=== PATIENT | male | born 1950 | race Caucasian/White ===

== ENCOUNTER 2016-12-20 05:32 | Day surgery (SDC) | payer OTHER ==
[~2016-12-20] VITALS: Ht 180.3 cm; Wt 100.0 kg
[2016-12-20] MEDS ORDERED: NS 1000P @30 MLS/HR (KVO) IV SCH (06:00)
[2016-12-20 06:08] VITALS: BP 129/85; PULSE 67; RESP 16; TEMP 98; O2SAT 99
[2016-12-20] MEDS ORDERED: ISOS30TA3 PO (06:20)
[2016-12-20] MEDS ORDERED: LEVO25TA4 PO (06:20)
[2016-12-20] MEDS ORDERED: ASPI81TA5 PO (06:20)
[2016-12-20 06:22] LABS: AUTOMATED NEUTROPHIL # 6.2 TH/MM3 (1.8-7.7); BASOPHIL % 0.4 % (0.0-2.0); EOSINOPHIL # 0.2 TH/MM3 (0-0.4); EOSINOPHIL % 2.4 % (0.0-4.0); HEMATOCRIT 40.2 % (39.0-51.0); HEMO FLAGS DIFF FINAL; LYMPHOCYTE # 1.7 TH/MM3 (1.0-4.8); MEAN CELL VOLUME 87.4 FL (80.0-100.0); MEAN CORPUSCULAR HEMOGLOBIN 29.4 PG (27.0-34.0); MEAN CORPUSCULAR HGB CONC 33.6 % (32.0-36.0); MONO % 12.9 % (0.0-8.0); NEUT % 66.3 % (16.0-70.0); PLATELET COUNT 204 TH/MM3 (150-450); RED CELL DISTRIBUTION WIDTH 13.6 % (11.6-17.2); WHITE BLOOD COUNT 9.3 TH/MM3 (4.0-11.0)
[2016-12-20 06:34] LABS: PROTHROMBIN TIME - PATIENT 10.6 SEC (9.8-11.6)
[2016-12-20 06:38] LABS: BICARBONATE 30.1 MEQ/L (21.0-32.0); POTASSIUM 4.1 MEQ/L (3.5-5.1)
[2016-12-20] MEDS ORDERED: HEPARIN-NS/PF INJ 500 ML ONE (07:05)
[2016-12-20] MEDS ORDERED: MIDAZOLAM HCL 2 MG/2 ML VIAL ONE (07:05)
[2016-12-20] MEDS ORDERED: NITROGLYCERIN INJ 5 ML ONE (07:05)
--- NOTE | 2016-12-20 08:11 | CATHPROC ---
T[employer] HIS Report Study Information Study Number Admission Scheduled Start Study Start [id number] Dec 20 2016 5:32AM 12/20/2016 Dec 20 2016 7:11AM [place] [facility] Cardiac Catheterization Admit Source Facility Department Other [facility] - Tooth Cutter Physician and Clinical Staff Initial Andrew Carlisle Console Operatorpramod Borden RN, Sari Min RN Recorder Reinier Brandon RCIS(BS) Scrub Nolan Villarreal RCIS(BS) Procedures Performed Procedure Location (Site) Vessel Name Angiogram LV LV Ventricle Coronary Angiograms LCA Left Coronary Coronary Angiograms RCA Right Coronary L Heart Cath Equipment Time Bridge Carpenter Description Size Mfg Part Number Used/Scraped TRANSDUCER, TRUWAVE [id number] 07:18 TRAN REDDING * Used W/STOCKCOCK *[id number] *[id number] *[id number] PIGTAIL ANG. 145 INFINITI [id number] CATHETER *[id number] 07:18 MEDLINE INDUSTRIES PACK, CCL CUSTOM * Used *[id number] 07:18 Exie PACER PEN, SKIN DUAL W/ RULER * Used *[id number] 07:18 [email or web address] MEDICAL SHEATH, FR6.5 PRELUDE 11CM FR 6.5 038ACT Used *[id number] 07:18 [email or web address] MEDICAL WIRE, 3MMJ .035 180CM 180CM Used *[id number] 07:18 NAMIC MANIFOLD, 4 PORT * Used *[id number] 07:49 NYCOMED OMNIPAQUE, 350 MG, 150ML 150ML [id number] Used [id number] 07:18 [employer] MEDICAL BLANKET,WARM AIR CCL * Used *[id number] Equipment Model, Serial, Lot Number and Expiration Data Description Model Number Serial Number Lot Number Expiration Date PIGTAIL ANG. 145 INFINITI [id number] 04-07-2019 CATHETER History: Current Medications Medication Dosage/Unit Route Frequency Last Date/Time Taken ASA History: Allergies Allergy Reaction No Known Allergies History: Risk Factors Family History of Hypertension Dyslipidemia Previous [place] Previous Heart Failure Premature CAD No No No No No Prior Valve Prior PCI Prior CABG Surgery No No No Cerebrovascular Peripheral Artery Chronic Lung On Dialysis Diabetes Disease Disease Disease No No No No No History: Stress Tests Stress or Imaging Studies Performed Yes Standard Exercise Stress Test No Stress Echo No Stress Test SPECT Stress Test SPECT Result Stress Test SPECT Ischemia Risk/Extent Yes Positive High Stress Test CMR No Cardiac CTA Coronary Calcium Score No No History: Other Current Smoker No Labs Hgb (g/dl) Hct (%) WBC (l/cumm) Platelets (thousands) 11.60-17.00 35.00-51.00 4.00-11.00 150.00-450.00 13.5 40.2 9.3 204 Glucose (mg/dl) BUN (mg/dl) Creatinine (mg/dl) BUN:Creatinine (1:x) 74.00-106.00 7.00-18.00 0.50-1.30 10.00-20.00 104 18 1.3 13.8 Na (meq/l) K (meq/l) 136.00-145.00 3.50-5.10 138 4.1 INR (PTT:PT) 0.90-1.10 1 CPK-MB (ng/ML) 0.50-3.60 Not Drawn Medication Medication Total Dose (Bolus/Oral) Medication Total Dosage/Unit 1% XYLOCAINE 20 mL VERSED 2 mg Medications (Bolus/Oral) Medication Time Given Dosage/Unit Administered By Reason VERSED 12/20/2016 7:36:10 AM 1 mg Franko Borden RN 1 mg VERSED given in lab by Franko Borden RN in Left Antecubital via Peripheral IV. Ordered by Andrew Jacobsen. 1% XYLOCAINE 12/20/2016 7:36:57 AM 20 mL Andrew Jacobsen 20 mL 1% XYLOCAINE given in lab by Andrew Jacobsen in Right Groin via Subcutaneous. Ordered by Andrew Jacobsen. VERSED 12/20/2016 7:38:19 AM 1 mg Franko Borden RN 1 mg VERSED given in lab by Franko Borden RN in Left Antecubital via Peripheral IV. Ordered by Andrew Jacobsen. Medication (Drip) Medication Time Given Dosage/Unit Concentration/Unit Diluent (ml) Solution IV Solutions 12/20/2016 7:11:25 AM 0 mL (IV) NaCl .9 IV Solutions given in lab by Sari Redding RN in Left Antecubital via Peripheral IV. Pump/Drip F low = 20 ml/hr using NaCl .9. Ordered by Andrew Jacobsen. Initial Case Assessment Cardiovascular HR Rhythm NIBP Chest Pain 61 SR 118/70 0 Edema Present Skin color Skin None Normal Warm Dry Circulatory - Right Pulses Dorsalis Pedis Femoral 2 2 Scale (0,1,2,3,4,d) Circulatory - Left Pulses Dorsalis Pedis Femoral 2 2 Scale (0,1,2,3,4,d) Circulatory - Lower Extremities Color Lower Right Color Lower Left Normal Normal Neurological State Oriented to time-place- Alert Moves all extremities person Respiration - General Respiration Rate SpO2 (%) (B/min) 13 93 Final Case Assessment Cardiovascular HR Rhythm NIBP Chest Pain 61 SR 118/70 0 Edema Present Skin color Skin None Normal Warm Dry Circulatory - Right Pulses Dorsalis Pedis Femoral 2 2 Scale (0,1,2,3,4,d) Circulatory - Left Pulses Dorsalis Pedis Femoral 2 2 Scale (0,1,2,3,4,d) Circulatory - Lower Extremities Color Lower Right Color Lower Left Normal Normal Neurological State Oriented to time-place- Alert Moves all extremities person Respiration - General Respiration Rate SpO2 (%) (B/min) 13 93 Chronological Log Time Study Chronological Log 7:11:10 Patient arrived via Bed. 7:11:12 Patient Name, D.O.B, / Armband Verified By R.N. 7:11:13 Consent signed by the physician and the patient and verified by the Tooth Cutter staff. 7:11:13 Pre-op and post- op instructions given; patient acknowledges understanding of instructions. 7:11:18 Patient has been NPO for Less than 6Hrs. 7:11:20 Skin Breakdown- 7:11:22 Patient Warmer Placed on the Table. 7:11:24 A # 20 IV was noted in the Antecubital (left). Grade = 0 IV Solutions given in lab by Sari Redding, RN in Left Antecubital via Peripheral IV. Pump/ Drip Flow = 20 ml/hr 7:11:25 using NaCl .9. Ordered by Andrew Jacobsen. 7:11:27 History and physical on the chart or being dictated. Vitals capture started with the following parameters, Patient=Adult, Interval=5 min, Initial Pr brufxn=562 mmHg, 7:14:31 Deflation Rate=5 mmHg, Cuff placed on Right Arm 7:15:13 HR=61 bpm, BPPX=006/70 mmhg, SpO2=96.0 %, Resp=13 B/min, Pain=0, Jerald=10, Yeager=2 Assessment: Initial Case, HR=61 BPM, Rhythm=SR, FRUJ=896/70 mmhg, Chest Pain=0, Edema=None, Robinson r=Normal, Skin = Warm, Dry Right Pulses: Iglesia Ped=2, Femoral=2 Left Pulses: Iglesia Ped=2, Femoral=2 7:15:28 Lower Right Extremities: Color=Normal Lower Left Extremities: Color=Normal Neurological: State=Alert, Ox3, HAYES Respiration: Resp=13 B/min, SpO2=93 % 7:20:04 HR=62 bpm, YAZL=941/75 mmhg, SpO2=96.0 %, Resp=13 B/min, Pain=0, Jerald=10, Yeager=2 7:20:20 Bilateral groins prepped with 2% chlorhexidine, and with a 3 min. waiting time. 7:21:10 Reference ECG taken 7:22:17 Pressure channel 1 zeroed. 7:25:05 HR=64 bpm, TDBE=645/70 mmhg, SpO2=97.0 %, Resp=11 B/min 7:30:06 HR=63 bpm, VXZK=077/71 mmhg, SpO2=98.0 %, Resp=10 B/min, Pain=0, Jerald=10, Yeager=2 7:35:08 HR=64 bpm, KAES=374/68 mmhg, SpO2=96.0 %, Resp=17 B/min, Pain=0, Jerald=10, Yeager=2 Time Out. Correct patient, correct procedure,correct physician, power injector loaded with contr ast with surgical team 7:36:00 present. Time Out Concurred by , individual staff in procedure 7:36:10 1 mg VERSED given in lab by Franko Borden RN in Left Antecubital via Peripheral IV. Ordered Andrew Diaz. 7:36:40 Case Start 7:36:57 20 mL 1% XYLOCAINE given in lab by Andrew Jacobsen in Right Groin via Subcutaneous. Ordered by Andrew Jacobsen. 7:38:19 1 mg VERSED given in lab by Franko Borden RN in Left Antecubital via Peripheral IV. Ordered Andrew Diaz. 7:38:32 Access site was Right Femoral Artery. 7:38:43 A SHEATH, FR6.5 PRELUDE 11CM FR 6.5 was advanced into the Fem Art (right) using the Modified Seldinger technique. A PIGTAIL ANG. 145 INFINITI CATHETER FR 6 was advanced over a wire. OMNIPAQUE, 350 MG, 150ML 150 ML was 7:38:56 used for injections. Recorded Pressure: LV, HR=67, Condition=Condition 1 7:40:21 (Left Ventricle) LV 112/4/10 7:40:46 HR=67 bpm, QUXZ=771/69 mmhg, SpO2=94.0 %, Resp=16 B/min, Pain=0, Jerald=10, Yeager=2 7:41:03 The LV was injected at 10 cc/sec for a total of 20. OMNIPAQUE, 350 MG, 150ML 150ML used. Recorded Pressure: LV, Ao, HR=67, Condition=Condition 1 7:41:46 (Left Ventricle) LV 117/3/9, (Aorta) Ao 123/68/91 7:42:01 Catheter was removed A JL 5.0 INFINITI CATHETER FR 6 was advanced over a wire. OMNIPAQUE, 350 MG, 150ML 150ML was use d for 7:42:03 injections. Recorded Pressure: Ao, HR=71, Condition=Condition 1 7:42:50 (Aorta) Ao 114/67/88 7:43:53 The LCA was injected and visualized at various angles. OMNIPAQUE, 350 MG, 150ML 150ML used. 7:45:08 HR=71 bpm, ZRWF=077/58 mmhg, SpO2=93.0 %, Resp=25 B/min, Pain=0, Jerald=10, Yeager=2 7:47:51 Catheter was removed A 3DRC INFINITI CATHETER FR 6 was advanced over a wire. OMNIPAQUE, 350 MG, 150ML 150ML was used for 7:47:52 injections. 7:48:56 The RCA was injected and visualized at various angles. OMNIPAQUE, 350 MG, 150ML 150ML used. 7:50:09 HR=69 bpm, NIBP=95/56 mmhg, SpO2=97.0 %, Resp=6 B/min, Pain=0, Jerald=10, Yeager=2 7:52:43 Catheter was removed 7:55:41 HR=65 bpm, BSQT=400/67 mmhg, SpO2=96.0 %, Resp=15 B/min, Pain=0, Jerald=10, Yeager=2 7:57:24 Case End Assessment: Final Case, HR=61 BPM, Rhythm=SR, FSZW=750/70 mmhg, Chest Pain=0, Edema=None, Robinson r=Normal, Skin = Warm, Dry Right Pulses: Iglesia Ped=2, Femoral=2 Left Pulses: Iglesia Ped=2, Femoral=2 7:57:56 Lower Right Extremities: Color=Normal Lower Left Extremities: Color=Normal Neurological: State=Alert, Ox3, HAYES Respiration: Resp=13 B/min, SpO2=93 % 7:58:04 Sheath(s) left in place, will be removed in Holding Area 7:58:09 Sterile dressing applied to site 7:58:09 No case complications noted. 7:58:10 Cine recording checked. 7:58:13 Bedside Report will be given. 7:58:15 Contrast Scanned 7:58:18 A Left Heart Cath was performed. 7:58:19 [facility] Study - Contrast Media Used In Study Contrast Total Opened (mL) Total Used (mL) Total Wasted (mL) Omnipaque 65 65 0 End Study - Maximum Contrast Load Max Contrast Load (mL) 384.6 End Study - Radiation Exposure Fluoro Time (minutes) 2.2 End Study - Patient Disposition Complications Transferred To Telemetry Bed
--- NOTE | 2016-12-20 08:30 | MA ---
cc: JERARDO STEEL M.D., GREGORY P. MD DATE: 12/20/2016 PROCEDURE PERFORMED Left heart catheterization, left ventriculography and coronary angiography. BRIEF HISTORY Randell Byrd is a 66-year-old man with a history of obesity and a family history of coronary artery disease. He started developing chest tightness. He was placed on Imdur therapy and had a nuclear stress test. Nuclear stress test showed three-vessel ischemia, high-risk findings. For this reason he was referred for cardiac catheterization. PROCEDURE PERFORMED Left heart catheterization, left ventriculography, coronary angiography. DESCRIPTION OF PROCEDURE The patient was brought to the cardiac recyclable materials distributor in a fasting state. He received a total of 2 mg of IV Versed for additional sedation. Using 1% lidocaine for local anesthesia a 6-1/2 Indonesian sheath was easily inserted into the right femoral artery. The left ventricular pressure was then recorded using a pigtail catheter followed by left ventriculography and then a pullback. Coronary angiography was then performed using a left 5 Jorge for left coronary artery and a 3DRC for the right coronary artery. At the end of the procedure the sheath is being pulled manually and a surgical consult is being obtained. FINDINGS 1. Hemodynamics. Left ventricular pressure is 117/3. End-diastolic pressure is 9. Aortic pressure is 114/67 with a mean of 88. There is no gradient during pullback from left ventricle to the aorta. 2. Left ventriculography. Left ventriculography shows a mildly dilated aortic root. There is no significant coronary artery calcification, LV ejection fraction appears at the low end of normal about 50%. 3. Coronary angiography. Left main coronary artery appears normal. Left anterior descending artery has diffuse disease. There is about 20% ostial disease of the LAD. There are irregularities proximally in the 20% range. First diagonal branch has about 30% irregularities. Just before the second diagonal branch the LAD has a discrete 95% stenosis before a small second diagonal branch. The LAD is diffusely and severely diseased after the second diagonal branch. There does appear to be a spot distally that may be bypassable. Right at the very apical portion of the LAD before it pitchforks, there is also 90% disease. The circumflex artery shows total occlusion of the major first obtuse marginal branch with [id number]-ffmu collaterals. The circumflex continues as a large posterolateral branch. There is a 75% distal circumflex stenosis before the posterolateral branch. The right coronary artery is dominant. This vessel has 75% mid stenosis, about 70% distal stenosis and 90% ostial stenosis of the posterior descending artery branch. There is also at least 50% disease of the posterolateral branch. CONCLUSION 1. Normal hemodynamics. 2. Low normal LV systolic function. 3. Severe three-vessel coronary artery disease. PLAN Obtain a surgical consult for possible bypass. The LAD needs grafted which will be challenging due to distal disease. The PDA and and 2nd OM are good targets. Consider grafts to 2nd diagonal, the occluded but collateralized OM-1 and distal RCA. MD LAINE Lewis/ROGER /8:04 AM /8:18 AM ESTHER
[2016-12-20] MEDS ORDERED: SODIUM CHLOR 0.9% 1000 ML INJ 1,000 ML IV SCH (08:35)
[2016-12-20] MEDS ORDERED: BACITRACIN OINT 0.9 GM PKT TOP ONE (08:45)
[2016-12-20] MEDS ORDERED: SODIUM CHLORIDE 0.9% FLUSH 10 ML FLUSH IV FLUSH PRN (08:45)
[2016-12-20] MEDS ORDERED: ONDANSETRON HCL 4 MG/2 ML VIAL IV PRN (08:45)
[2016-12-20] MEDS ORDERED: oxyCODONE/ACETAMINOPHEN 5 MG/325 MG TAB PO PRN (08:45)
--- NOTE | 2016-12-20 12:40 | PD.CAR.PN ---
CVT Progress Note Subjective/Hospital Course: pt seen and evaluated, full dictation completed sts data discussed with pt RISK SCORES About the STS Risk Calculator Procedure: CAB Only Risk of Mortality: 0.794% Morbidity or Mortality: 8.238% Long Length of Stay: 2.468% Short Length of Stay: 61.989% Permanent Stroke: 0.585% Prolonged Ventilation: 4.498% DSW Infection: 0.244% Renal Failure: 2.803% Reoperation: 3.517% Objective: Vital Signs Date Time Temp Pulse Resp B/P Pulse Ox O2 Delivery O2 Flow Rate FiO2 12/20/16 08:35 97 Room Air 12/20/16 06:08 98.0 67 16 129/85 99 Labs: Laboratory Tests Test 12/20/16 06:10 White Blood Count 9.3 TH/MM3 (4.0-11.0) Red Blood Count 4.60 MIL/MM3 (4.50-5.90) Hemoglobin 13.5 GM/DL (13.0-17.0) Hematocrit 40.2 % (39.0-51.0) Mean Corpuscular Volume 87.4 FL (80.0-100.0) Mean Corpuscular Hemoglobin 29.4 PG (27.0-34.0) Mean Corpuscular Hemoglobin 33.6 % Concent (32.0-36.0) Red Cell Distribution Width 13.6 % (11.6-17.2) Platelet Count 204 TH/MM3 (150-450) Mean Platelet Volume 9.5 FL (7.0-11.0) Neutrophils (%) (Auto) 66.3 % (16.0-70.0) Lymphocytes (%) (Auto) 18.0 % (9.0-44.0) Monocytes (%) (Auto) 12.9 % (0.0-8.0) Eosinophils (%) (Auto) 2.4 % (0.0-4.0) Basophils (%) (Auto) 0.4 % (0.0-2.0) Neutrophils # (Auto) 6.2 TH/MM3 (1.8-7.7) Lymphocytes # (Auto) 1.7 TH/MM3 (1.0-4.8) Monocytes # (Auto) 1.2 TH/MM3 (0-0.9) Eosinophils # (Auto) 0.2 TH/MM3 (0-0.4) Basophils # (Auto) 0.0 TH/MM3 (0-0.2) CBC Comment DIFF FINAL Differential Comment Prothrombin Time 10.6 SEC (9.8-11.6) Prothromb Time International 1.0 RATIO Ratio Activated Partial 30.0 SEC Thromboplast Time (24.3-30.1) Sodium Level 138 MEQ/L (136-145) Potassium Level 4.1 MEQ/L (3.5-5.1) Chloride Level 103 MEQ/L (98-107) Carbon Dioxide Level 30.1 MEQ/L (21.0-32.0) Anion Gap 5 MEQ/L (5-15) Blood Urea Nitrogen 18 MG/DL (7-18) Creatinine 1.38 MG/DL (0.60-1.30) Estimat Glomerular Filtration 51 ML/MIN (>89) Rate Random Glucose 104 MG/DL (74-106) Calcium Level 8.5 MG/DL (8.5-10.1) Result Diagram: 12/20/16 0610 12/20/16 0610 Mildred Castillo Dec 20, 2016 12:40
[2016-12-20] MEDS ORDERED: IOHEXOL 350 MG/ML 100 ML BTL (for Cath Lab) OTHER ONE (13:17)
--- NOTE | 2016-12-20 14:15 | MB ---
cc: YAN TY MD, VANCE E. M.D. MEYERS, CARY DATE OF CONSULTATION: 12/20/2016 DATE OF : 1950 HISTORY OF PRESENT ILLNESS This is a 66-year-old male who apparently started developing chest discomfort back in October. He had an episode that lasted about several hours, chest pressure where he became a little bit diaphoretic. He had two more episodes since and then he had another episode over the weekend that had no associated shortness of breath, nausea, vomiting or diarrhea. The patient was seen and evaluated by Dr. Andrew Jacobesn on December 15 and underwent an echocardiogram which showed an EF of 55%, some grade 1 diastolic dysfunction with an E-A reversal with impaired relaxation. There was some trivial regurgitation of the mitral valve and trivial aortic insufficiency. The patient was admitted electively today for outpatient cardiac cath. The cardiac cath showed a proximal LAD of 20%, mid distal LAD of 95%. The diagonal had a 30% stenosis. The circumflex had a 75% stenosis, the OM 100%. The RCA had a 75% and the PDA 90%. We were consulted to evaluate for coronary artery bypass grafting. PAST MEDICAL HISTORY 1. Chronic sinusitis. 2. Hypothyroidism. 3. Recently diagnosed with hyperlipidemia. PAST SURGICAL HISTORY 1. Left hernia repair. 2. Left knee replacement. 3. Sinus surgery 30 years ago. ALLERGIES No known allergies. MEDICATIONS Home medications include: 1. Aspirin 81. 2. Levothyroxine. 3. He was just added some Imdur. FAMILY HISTORY Mother at age 96 with history of heart disease. Father from cancer at age 62. He has six sisters. One passed with complications of lupus. One sister with heart disease. One sister with cancer. SOCIAL HISTORY The patient is . Retired from the [employer] and the [employer]. He is remarried. He has two children of his own and his has two children. He drinks approximately two beers per month. He plays softball 4 days per week. REVIEW OF SYSTEMS GENERAL: In general no night sweats, fever, heat or cold intolerance. SKIN: No psoriasis, itching or hives. HEENT: No blurred vision or hearing loss. RESPIRATORY: Rare shortness of breath. CARDIOVASCULAR: As above in the HPI. GASTROINTESTINAL: No diarrhea or vomiting. GENITOURINARY: No burning, frequency or urgency. CRIME SCENE PHOTOGRAPHER: No history of TIA, CVA, seizure disorder. ENDOCRINE: Positive for hypothyroidism. PHYSICAL EXAMINATION VITAL SIGNS: Blood pressure 129/80, heart rate 67, temperature max 98. GENERAL: The patient is awake and alert, in no acute distress. HEENT: Head is normocephalic, atraumatic. Pupils equal and reactive. Oral mucosa pink and moist. NECK: Supple. No JVD. HEART: Heart sounds S1, S2. Regular rate and rhythm. No audible rubs, murmurs, gallops. LUNGS: Clear to auscultation. No wheezes, rales or rhonchi. ABDOMEN: Soft, nontender. No masses or organomegaly. EXTREMITIES: No cyanosis, clubbing or edema. LABORATORY Hemoglobin 13, hematocrit 40, white cell count 9.3, platelet count 204. INR 1.0. Sodium 138, potassium 4.1, BUN 18, creatinine 1.38. EKG EKG shows sinus rhythm with some nonspecific T-wave changes in the lateral leads. IMPRESSION This is a very pleasant 66-year-old male with recent angina who underwent cardiac cath with multivessel disease, EF of 55%. Coronary films have been reviewed by Dr. Vania Polo. PLAN The plan is for coronary artery bypass grafting x4 on December 28. Full work-up is still pending at this time. He can continue his current medications without any problems. The procedures, alternatives and risks have been discussed by Dr. Vania Polo and the patient is agreeable to proceed. STS data will be documented in the electronic record. The risk of mortality is 0.794%. Dictated by: JARRED Burden MD NANNETTE Tomlinson/TIFFANIE /12:41 PM /2:12 PM
--- NOTE | 2016-12-20 14:46 | RADRPT ---
EXAM DATE/TIME: 12/20/2016 13:57 [facility] COMPARISON: No previous studies available for comparison. INDICATIONS : Pre-op cardiac surgery. MEDICAL HISTORY : Thyroid disease. Angina. Sleep apnea. Hepatitis B. SURGICAL HISTORY : Cardiac cath. ENCOUNTER: Initial ACUITY: 1 day PAIN SCORE: 0/10 LOCATION: Bilateral leg. TECHNIQUE: Venous ultrasound of the left and right leg was performed from the inguinal ligament to the proximal calf. Real-time, color Doppler and spectral tracing, compression and augmentation techniques were us ed. FINDINGS: RIGHT LEG: There is normal compressibility of the deep venous system from the inguinal region to the proximal ca lf. No echogenic clot is seen in the lumen of the common femoral, femoral, popliteal, and posterior tibial veins. There is a normal response of the venous system to proximal and distal augmentation an d respiration. LEFT LEG: There is normal compressibility of the deep venous system from the inguinal region to the proximal ca lf. No echogenic clot is seen in the lumen of the common femoral, femoral, popliteal, and posterior tibial veins. There is a normal response of the venous system to proximal and distal augmentation an d respiration. CONCLUSION: Negative for deep venous thrombosis.. Toy Ventura MD FACR on December 20, 2016 at 14:44 Board Certified Radiologist. This report was verified electronically.
--- NOTE | 2016-12-20 14:49 | RADRPT ---
EXAM DATE/TIME: 12/20/2016 13:40 [facility] COMPARISON: No previous studies available for comparison. INDICATIONS : Pre-op cardiac surgery. MEDICAL HISTORY : Thyroid disease. Angina. Sleep apnea. Hepatitis B. SURGICAL HISTORY : Cardiac cath. ENCOUNTER: Initial ACUITY: 1 day PAIN SCORE: 0/10 LOCATION: Bilateral neck PEAK SYSTOLIC VELOCITIES (cm/sec): ICA/CCA RATIO: Right: 1.0 Left: 0.7 ICA: Right: 67 Left: 63 CCA: Right: 64 Left: 87 ECA: Right: 132 Left: 95 VERTEBRAL: Right: 37 antegrade Left: 69 antegrade Elevated flow velocities and ICA/CCA ratios have been found to correlate with increased degrees of vessel stenosis, calculated as percentage of diameter relative to a normal segment of distal ICA/CCA FINDINGS: RIGHT CAROTID: No significant stenosis is visualized. The waveforms are within normal limits. LEFT CAROTID: No significant stenosis is visualized. The waveforms are within normal limits. VERTEBRAL ARTERIES: Antegrade flow is seen in both vertebral arteries. MISCELLANEOUS: None. CONCLUSION: 1. No significant atherosclerotic disease or stenosis is present within either internal carotid arter y. 2. There is antegrade flow within both vertebral arteries. Dick Paul MD on December 20, 2016 at 14:47 Board Certified Radiologist. This report was verified electronically.
--- NOTE | 2016-12-20 14:53 | RADRPT ---
EXAM DATE/TIME: 12/20/2016 14:06 [facility] COMPARISON: No previous studies available for comparison. INDICATIONS : Pre-op cardiac surgery. MEDICAL HISTORY : Thyroid disease. Angina. Sleep apnea. Hepatitis B. SURGICAL HISTORY : Cardiac cath. ENCOUNTER: Initial ACUITY: 1 day PAIN SCORE: 0/10 LOCATION: Bilateral leg. GREATER SAPHENOUS VEIN THIGH: PROXIMAL: Right 4 mm Left 4 mm MID: Right 4 mm Left 5 mm DISTAL: Right 4 mm Left 4 mm CALF: PROXIMAL: Right 4 mm Left 2 mm MID: Right 2 mm Left 2 mm DISTAL: Right 2 mm Left 3 mm FINDINGS: The venous system of the lower extremities are patent by color Doppler imaging. Measurements of the leg veins (in mm) are listed above. CONCLUSION: Venous mapping as described above. Toy Ventura MD FACR on December 20, 2016 at 14:51 Board Certified Radiologist. This report was verified electronically.
--- NOTE | 2016-12-20 15:41 | RADRPT ---
EXAM DATE/TIME: 12/20/2016 15:19 [facility] COMPARISON: No previous studies available for comparison. INDICATIONS : Evaluate for pneumonia, pneumothorax or communicable disease Pre heart surgery MEDICAL HISTORY : Thyroid disease. Angina. Sleep apnea. Hepatitis B. SURGICAL HISTORY : Cardiac cath. ENCOUNTER: Initial ACUITY: 1 day PAIN SCORE: 0/10 LOCATION: chest FINDINGS: PA and lateral views of the chest demonstrate the lungs to be symmetrically aerated without evidence of mass, infiltrate or effusion. The cardiomediastinal contours are unremarkable. Osseous structure s are intact. CONCLUSION: No acute disease. Toy Ventura MD FACR on December 20, 2016 at 15:39 Board Certified Radiologist. This report was verified electronically.
[2016-12-20 16:06] LABS: BLOOD, URINE NEG (NEG); COMMENT (UR) CULT NOT INDICATED; CULTURE IF INDICATED CULT NOT INDICATED; GLUCOSE,URINE NEG (NEG); KETONE, URINE NEG (NEG); MUCUS URINE FEW /lpf (OCC); NITRITE,URINE NEG (NEG); URINE COLOR YELLOW (YELLW/STRAW)
--- NOTE | 2016-12-20 16:22 | EKG ---
Date Performed: 12/20/2016 Time Performed: 06:24:20 PTAGE: 66 years EKG: Sinus rhythm . Lateral T wave changes may be due to myocardial ischemia Abnormal ECG NO PREVIOUS TRACING DOCTOR: Mickey Lay Interpretating Date/Time 12/20/2016 16:20:18
[2016-12-20 21:43] LABS: HEMOGLOBIN A1a 1.1 %; HEMOGLOBIN A1b 1.6 %; HEMOGLOBIN Ao 85.4 %; HEMOGLOBIN LA1C 1.8 %; HEMOGLOBIN P3 3.8 %
--- NOTE | 2016-12-22 10:30 | RSPPFT ---
DATE OF PROCEDURE: 12/20/16 COMMENTS: VOLUMES DYNAMIC: FVC and FEV1 normal. FLOWS: FEV1% and FEF 25-75 normal. IMPRESSION: Normal simple spirometry.
== END 2016-12-20 15:59 | disposition home or self-care (01) ==
LOC: HDOC 05:32 → HDIC 05:33 → HDOC 15:59
PROVIDERS: ATTEND Internal Medicine Cardiovascular Disease
DX: I25.119 Atherosclerotic heart disease of native coronary artery with unspecified angina pectoris (principal); R94.39 Abnormal result of other cardiovascular function study; E03.9 Hypothyroidism, unspecified; E78.5 Hyperlipidemia, unspecified; B19.10 Unspecified viral hepatitis B without hepatic coma; G47.30 Sleep apnea, unspecified; E66.9 Obesity, unspecified; Z68.30 Body mass index [BMI] 30.0-30.9, adult; Z01.818 Encounter for other preprocedural examination; Z82.49 Family history of ischemic heart disease and other diseases of the circulatory system; Z79.82 Long term (current) use of aspirin; Z79.899 Other long term (current) drug therapy
CPT/HCPCS: 71020; 80048; 81001; 83036; 85025; 85610; 85730; 86850; 86900; 86901; 87641; 93005; 93458; 93880; 93970; 93998; 94010; C1769; C1893; J1644; J2250; J3010; Q9967

== ENCOUNTER 2016-12-28 05:20 | Inpatient (IN) | payer MEDICARE, OTHER ==
[2016-12-28] VITALS (14 sets, daily range): BP systolic 107–139; BP diastolic 55–81; PULSE 69–86; RESP 11–19; TEMP 97.2–98; O2SAT 92–96
[~2016-12-28] VITALS: Ht 180.3 cm; Wt 102.5 kg
[~2016-12-28 05:20] MED LIST: ARTIFICIAL TEARS OPTH OINT 3.5 APPLIC/3.5 GM TUBO ONE; ASPI81TA5 PO; CALCIUM CHLORIDE 10% SOLN 1 GRAM/10 ML SYR IV ONE; HEPARIN SODIUM - SQ 10,000 UNITS/ML VIAL SQ ONE; ISOS30TA3 PO; LEVO25TA4 PO; MAGNESIUM SULFATE 1000 MG/2 ML VIAL (PED) IV ONE; PROTAMINE SULFATE 250 MG/25 ML VIAL IV ONE
[2016-12-28] MEDS ORDERED: POVIDONE IODINE 5% (ANTISEPSIS KIT) 4 APPLICATIONS EACH NARE PRN (05:45)
[2016-12-28] MEDS ORDERED: INSULIN REGULAR 100 UNITS in NS 100 ML IV SCH (05:45)
[2016-12-28] MEDS ORDERED: SODIUM CHLORID 0.9% 500 ML IV PRN (05:45)
[2016-12-28] MEDS ORDERED: CHLORHEXIDINE GLUCONATE 4% SOLN 120 ML BTL TOPICAL SCH (05:45)
[2016-12-28] MEDS ORDERED: CEFAZOLIN 500 MG in NS IRR BTL 500 ML IRRIGATION SCH (05:45)
[2016-12-28] MEDS ORDERED: LACTATED RINGER'S 1000 ML IV PRN (05:45)
[2016-12-28] MEDS ORDERED: METOPROLOL TARTRATE 25 MG TAB PO PRN (05:45)
[2016-12-28] MEDS ORDERED: INSULIN HUMAN REGULAR 1,000 UNITS/10 ML VIAL SQ PRN (05:45)
[2016-12-28] MEDS ORDERED: ceFAZolin 2 GM PREMIX 50 ML IV SCH (05:45)
[2016-12-28] MEDS ORDERED: CHLORHEXIDINE GLUCONATE 2 % 1 PACK (2 CLOTHS) TOPICAL PRN (05:45)
[2016-12-28] MEDS ORDERED: METOPROLOL TARTRATE 25 MG TAB PO SCH (05:45)
[2016-12-28] MEDS ORDERED: PAPAVERINE 60 MG-NITROGLYCERIN 100 MCG-DILTIAZEM 100 MG in NS 100 ML IRRIGATION SCH ×4 (05:45)
[2016-12-28] MEDS ORDERED: LEVO50TA4 PO (06:14)
[2016-12-28] MEDS ORDERED: SUGAMMADEX SODIUM 200 MG/2 ML VIAL IV PUSH ONE ×2 (06:21)
[2016-12-28] MEDS ORDERED: VANCOMYCIN HCL 1000 MG VIAL ONE (06:38)
[2016-12-28] MEDS ORDERED: HEPARIN SODIUM - SQ 10,000 UNITS/ML VIAL ONE (06:38)
[2016-12-28] MEDS ORDERED: methylPREDNISolone SOD SUCC 125 MG/2 ML VIAL ONE (06:38)
[2016-12-28] MEDS ORDERED: ceFAZolin 2 GM PREMIX 50 ML ONE (06:38)
[2016-12-28] MEDS ORDERED: CARDIOPLEGIC IRR 2,000 ML ONE (07:12)
[2016-12-28] MEDS ORDERED: SODIUM BICARBONATE 8.4% INJ 50 ML ONE (07:12)
[2016-12-28] MEDS ORDERED: HEPARIN SODIUM - IV 10,000 UNITS/10 ML VIAL ONE (07:12)
[2016-12-28] MEDS ORDERED: POTASSIUM CHLORIDE 40 MEQ/20 ML VIAL ONE (07:13)
[2016-12-28] MEDS ORDERED: MANNITOL INJ 100 ML ONE (07:13)
[2016-12-28] MEDS ORDERED: ALBUMIN HUMAN 25% 12.5 GM/50 ML BAGP IV ONE (07:14)
[2016-12-28] MEDS ORDERED: CHLORHEXIDINE GLUCONATE 2 % 1 PACK (2 CLOTHS) TOPICAL ONE (08:00)
[2016-12-28] MEDS ORDERED: SODIUM CHLORID 0.9% 500 ML INJ 500 ML IV ONE (09:16)
[2016-12-28] MEDS ORDERED: LACTATED RINGER'S 1000 ML INJ 2,000 ML IV ONE (09:16)
[2016-12-28] MEDS ORDERED: SODIUM CHLOR 0.9% 250 ML INJ 500 ML IV ONE (09:16)
[2016-12-28] MEDS ORDERED: NORMOSOL R INJ 2,000 ML IV ONE (09:16)
[2016-12-28] MEDS ORDERED: SODIUM CHLORIDE 0.9% INJ 200 ML IV ONE (09:16)
[2016-12-28] MEDS ORDERED: ceFAZolin INJ 1,000 MG VIAL ONE (11:47)
[2016-12-28] MEDS ORDERED: LACTATED RINGER'S 1000 ML INJ 500 ML IV PRN (12:08)
[2016-12-28] MEDS ORDERED: hydrALAZINE HCL 20 MG/ML VIAL IV PRN (12:15)
[2016-12-28] MEDS ORDERED: POTASSIUM CHLOR 20 MEQ PREMIX 100 ML IV PRN ×2 (12:15)
[2016-12-28] MEDS ORDERED: CALCIUM CHLORIDE INJ 1 GM in SODIUM CHLORIDE 0.9% INJ 100 ML IV PRN (12:15)
[2016-12-28] MEDS ORDERED: RESP: RACEPINEPHRINE 2.25% 0.5 ML NEB NEB PRN (12:15)
[2016-12-28] MEDS ORDERED: RESP: ALBUTEROL 2.5 MG/IPRATROPIUM 0.5 MG NEB (PRN) NEB (12:15)
[2016-12-28] MEDS ORDERED: CLEVIDIPINE INJ 50 ML IV PRN (12:15)
[2016-12-28] MEDS ORDERED: DEXTROSE 50% IN WATER 50 ML VIAL(D50) IV PUSH PRN (12:15)
[2016-12-28] MEDS ORDERED: MAGNESIUM SULFATE INJ 2 GM in SODIUM CHLORIDE 0.9% INJ 100 ML IV PRN ×4 (12:15)
[2016-12-28] MEDS ORDERED: ALBUMIN HUMAN 5% 12.5 GM/250 ML BOTTLE IV PRN (12:15)
[2016-12-28] MEDS ORDERED: Post-op Orders (for Pharmacy) MISC OTHER ONE (12:15)
[2016-12-28] MEDS ORDERED: POTASSIUM CHLORIDE 20 MEQ CONTROLLED RELEASE TAB PO PRN ×2 (12:15)
[2016-12-28] MEDS ORDERED: SODIUM CHLORIDE 0.9% FLUSH 10 ML FLUSH IV FLUSH PRN (12:15)
[2016-12-28] MEDS ORDERED: CALCIUM CHLORIDE 10% 1 GRAM/10 ML VIAL IV PRN (12:15)
[2016-12-28] MEDS ORDERED: METOPROLOL TARTRATE 5 MG/5 ML VIAL IV PUSH PRN (12:15)
[2016-12-28] MEDS ORDERED: ONDANSETRON HCL 4 MG/2 ML VIAL IV PUSH PRN (12:15)
--- NOTE | 2016-12-28 12:21 | PD.OP ---
cc: Vania Polo MD; Andrew Jacobsen MD Operative Report Date of Surgery: Dec 28, 2016 Preoperative Diagnosis: (1) CAD (coronary artery disease) (2) Angina pectoris Postoperative Diagnosis: same Procedure: CABG x 5 DUVALL to LAD - poor SVG to PDA - good SVG to OM3 - good SVG to OM1 - fair SVG to D1 - good EVH SAMIA Anesthesia: Dr. Bird Surgeon: Vania Polo Fixer Supervisor(s): JUNITO Christianson Operation and Findings: The risks, benefits, complications, treatment options, and expected outcomes were discussed with the patient. The possibilities of reaction to medication, pulmonary aspiration, perforation of viscus, bleeding, recurrent infection, the need for additional procedures, failure to diagnose a condition, and creating a complication requiring transfusion or operation were discussed with the patient. The patient concurred with the proposed plan, giving informed consent. The site of surgery properly noted/marked. The patient was taken to Operating Room, identified as Randell Broadalbin and the procedure verified as CABG, EVH, SAMIA. A Time Out was held and the above information confirmed. Standard monitoring lines and Lutz catheter were placed. General anesthesia was induced. The patient was prepped and draped in a sterile fashion. A median sternotomy was performed and electrocautery was used to obtain hemostasis. The left internal mammary artery was procured as a pedicle from the 7th rib to the 1st rib in the usual manner. Simultaneously left greater saphenous vein was procured from the left leg using a minimally invasive endoscopic technique. The vein was prepared for anastomosis and the leg wound was irrigated and closed in 2 layers. The pericardium was opened and a pericardial sling was created using interrupted 0 silk sutures. The patient was heparinized for cardiopulmonary bypass and the distal mammary pedicle was instrumented for anastomosis. The heart was instrumented for cardiopulmonary bypass in the usual manner. Antegrade blood cardioplegia was employed. The patient was placed on cardiopulmonary bypass. An aortic cross-clamp was applied and the heart was arrested using cold blood cardioplegia. Antegrade cardioplegia was administered after he each anastomosis. After adequate arrest, the distal right coronary circulation was investigated and the PDA was opened with a [place] blade and found to be a 1.5 millimeter good target. Saphenous vein was approximated to the PDA artery using a running 7 0 Prolene suture. The graft was measured for length and orientation and the proximal anastomosis was constructed to the ascending aorta using a running 5 0 Prolene suture after creating an aortotomy with a 5 millimeter punch. The 3rd circumflex marginal artery was then opened with a [place] blade and found to be a 1.5 millimeter good target. Saphenous vein was approximated to the OM3 artery using a running 7 0 Prolene suture. The graft was measured for length and orientation and the proximal anastomosis was constructed to the ascending aorta using a running 5 0 Prolene suture after creating an aortotomy with a 5 millimeter punch. The 1st circumflex marginal artery was then opened with a [place] blade and found to be a 1 millimeter fair target. Saphenous vein was approximated to the OM1 artery using a running 7 0 Prolene suture. The graft was measured for length and orientation and the proximal anastomosis was constructed to the ascending aorta using a running 5 0 Prolene suture after creating an aortotomy with a 5 millimeter punch. The 1st diagonal artery was then opened with a [place] blade and found to be a 1 millimeter good target. Saphenous vein was approximated to the D1 artery using a running 7 0 Prolene suture. The graft was measured for length and orientation and was suspended from the pericardium. The distal LAD was opened with a [place] blade and found to be a 1.5 millimeter poor target with diffuse disease. The left internal mammary artery was approximated to the LAD using a running 7 0 Prolene suture. The pedicle was attached to the epicardium using interrupted 5 0 silk suture. The patient was systemically rewarmed and received a hotshot dose of warm blood cardioplegia. The aorta was vented and the proximal anastomosis to the D1 graft was accomplished using a running 5 0 Prolene suture after creating an aortotomy was a 5 millimeter punch. The cross-clamp was removed and all proximal and distal anastomoses were examined for hemostasis. The patient was weaned from cardiopulmonary bypass. Protamine was given. There was no adverse reaction. Decannulation was carried out without incident. Wound was checked for hemostasis which was obtained using electrocautery. A 36 [place] mediastinal and 32 [place] left pleural chest tubes were placed and secured to the skin with 0 silk suture. The sternum was closed with stainless steel wire. The fascia was closed with 1. PDS. The subcutaneous tissue was closed using a running 2-0 Vicryl suture. The skin was closed with 4-0 Monocryl. Sterile dressings were placed. At the end of the operation, all sponge, instruments, and needle counts were correct. The patient was transferred to the CICU in stable condition. Findings: good LV function XC: 84 min CPB: 92 min Drains: mediastinal x 1 pleural x 1 Complications: none Disposition: to CVICU in stable condition Vania Polo MD Dec 28, 2016 12:21
[2016-12-28] MEDS: INSULIN REGULAR (IV INFUSION) 100 UNITS in SODIUM CHLORIDE 0.9% INJ 99 ML IV SCH ×2 (12:37→16:02)
[2016-12-28] MEDS: POTASSIUM CHLOR 20 MEQ PREMIX 100 ML IV PRN ×2 (12:40→14:25)
[2016-12-28] MEDS ORDERED: MIDAZOLAM HCL 5 MG/5 ML VIAL ONE (12:58)
[2016-12-28] MEDS ORDERED: fentaNYL CITRATE 1000 MCG/20 ML VIAL ONE (12:58)
[2016-12-28] MEDS ORDERED: ACETAMINOPHEN 650 MG SUPP RECTAL PRN (13:00)
[2016-12-28] MEDS ORDERED: ACETAMINOPHEN 325 MG TAB PO PRN (13:00)
--- NOTE | 2016-12-28 13:10 | RADRPT ---
EXAM DATE/TIME: 12/28/2016 12:49 [facility] COMPARISON: CHEST PA & LAT, December 20, 2016, 15:19. INDICATIONS : Post CABG MEDICAL HISTORY : Hepatitis B. thyroid disease, sleep apnea SURGICAL HISTORY : CABG. ENCOUNTER: Subsequent ACUITY: 1 day PAIN SCORE: Non-responsive. LOCATION: Bilateral chest FINDINGS: A single view of the chest demonstrates the lungs to be symmetrically aerated with a left-sided thora costomy tube and small left apical pneumothorax. Endotracheal tube is appropriately positioned above the gabriele. A gastric tube traverses the GE junction and extends off the inferior aspect of the image . Right IJ central venous catheter with tip projecting over the central venous system. Mediastinal dr french. Intact median sternotomy wires. Atelectatic changes of the left hemidiaphragm. Lungs are otherwise clear. Osseous structures are inta ct.. CONCLUSION: 1. Postsurgical changes characteristic of the reported history of recent CABG. 2. There does appear to be a small left apical pneumothorax.. 3. Otherwise, life-support tubes in appropriate position. Minimal atelectatic changes of the left hem idiaphragm/lingula. Hira Meyer MD on December 28, 2016 at 13:06 Board Certified Radiologist. This report was verified electronically.
--- NOTE | 2016-12-28 13:40 | PD.CAR.PN ---
CVT Progress Note Subjective/Hospital Course: 66/ male / hx of recent chest pain, evaluated by Dr Andrew Jacobsen, underwent cardiac cath which showed 95% mid /distal LAD. 75% Circ, 100% OM 75% RCA. Echo showed EF 55%, grade 1 diastolic dysfunction pt went home and was brought back for elective surgery PMH: HLP, CAD, hypothyroidism , sleep apnea ( does not wear CPAP device) Objective: Vital Signs Date Time Temp Pulse Resp B/P (MAP) Pulse Ox O2 Delivery O2 Flow Rate FiO2 12/28/16 13:07 97.2 12/28/16 12:59 97.2 70 11 107/60 (76) 95 12/28/16 12:54 94 50 12/28/16 12:48 79 12/28/16 12:46 95 Mechanical Ventilator 50 12/28/16 12:46 50 12/28/16 12:23 94 50 (1) CAD (coronary artery disease) (2) S/P CABG x 5 (3) Hypothyroidism (4) Hypertension (5) Angina pectoris Mildred Castillo Dec 28, 2016 13:40
[2016-12-28] MEDS: ACETAMINOPHEN 1000 MG/100 ML VIAL IV SCH ×2 (13:52→19:40)
--- NOTE | 2016-12-28 13:59 | HHI.FF ---
Face to Face Verification Diagnosis: (1) CAD (coronary artery disease) (2) Angina pectoris (3) Hypothyroidism (4) Hypertension (5) S/P CABG x 5 Speech Therapy Instructions: Heart and Vascular Surgery patients *Special attention to sternal dressing Mandatory frequency Assess and evaluation, 4 days in a row The next week 3X week 2 times a week for 4 weeks 1 time a week for 5 weeks Schedule Heart and Vascular patients for full 60 day certification period Initial visit Review Open Heart Surgery Discharge Instructions (Sternal precautions, Activity, Elastic hose, Incision care, Driving, Incentive spirometry, Smoking, Quinn, Work and other) Need Betadine to paint incision Medication reconciliation Importance of follow up care/ check on appointments Make calendar record temperature daily When to call [facility] nurse, review instructions, phone list Incentive Spirometry, demonstration Visit 1- Begin discharge instruction for patient family and/ or caregiver using teach back method- Signs and symptoms of infection Disease characteristics Medicines and side effects Foods and nutrition/ appetite Infection control/ hand washing/ hygiene Visit 2- Continue teaching Discharge instructions- include additional information on smoking cessation , sternal dressing (sternal vac) Visit 3- Continue teaching- Cough and deep breathing, incision monitoring. Choose my plate Visit 4- Continue teaching- Discuss limitations Discuss how they are feeling Discuss progress toward goals Remaining visits- continue teaching and monitoring PREVENA Single Use Negative Wound Therapy System Caregiver Instruction Sheet 1. A Prevena dressing system was applied to the chest incision during surgery , to promote wound healing. It works via a suction device (negative pressure wound therapy) to remove low to moderate levels of exudate (drainage) and infectious materials. We recommend that the device stay in place for up to seven days, from day of surgery. 2. Day of Surgery___12/28/16 Day of Removal __01/04/17 3. The dressing should only be removed by a health direct care counselor. Please arrange removal of device to coincide with Home Health visit and or with Nursing staff at Rehab 4. If skin reddening or irritation of skin occurs, or excessive drainage, please notify the Cardiovascular Surgeons office at [phone]. 5. Light showering is permissible; however the pump should be disconnected and placed in safe location, where it will not get wet. The dressing should not be exposed to direct spray or submerged in water. No bath tub / shower only. Ensure the end of the tubing attached to the dressing is facing down so that water does not enter the top of the tube. 6. To remove Prevena dressing: press purple button to turn off device / remove the suction. Then disconnect the tubing from the pump. The fixation strips should be stretched away from the skin and the dressing lifted at one corner and peeled back until it has been fully removed. 7. After removal, it is ok to shower daily using liquid dial soap and clean wash cloth, rinse and pat dry, and leave incision open to air dry. For any concerns regarding Prevena dressing, and or wounds, please contact Sonia Montero, patient navigator at [phone] or notify the Cardiovascular Surgeons office at [phone]. Incentive spirometry Q1 hr x 10, while awake, also use acapella device hourly whole awake Sternal Breast Bone Precautions: NO pushing or pulling, ( pt must use sternal pillow to support chest with all activities and with coughing ( takes up to 3 months breast bone to heal ) All females to wear sternal bra , launder as needed Daily incision care: ok to shower daily, no tub bath. Wash all incisions with liquid dial soap, clean wash cloth to each site, rinse and pat dry. Observe for any signs of infection, such as drainage which is dark yellow, andrea, green or foul smelling. Immediately report to the surgeon any drainage from the chest incision, or legs, and for any abnormal drainage from the chest tube sites. Notify surgeon if any temp >101.5 degrees F. When specialty dressing removed/ or if you do not have one, continue to shower daily as above, then rinse and pat incision dry and paint with betadine daily x 5 days. Allow steri strips to fall off if you have any. Avoid lotions, creams, salves, oils, etc. for the first month Please see attached forms for additional instructions regarding post Open Heart specialty wound vacuum dressings. ERI or Prevena , Dressing to be removed by Nursing staff on __01/04/[address] Polo patients , please obtain CBC, BMP, PA & Lat CXR in 2 weeks, results to Dr. Polo ( prescription will be given) ( ) (Tele: [phone]) , F/U appointment: as per DC instructions: PCP in 2 weeks, CV surgeon 2 weeks, Buying Agent 3-4 weeks For any questions regarding incisions/ dressing / meds / post op care or above Symptoms, Tuesday 8am-5pm Heart & Vascular Surgery Office ( Dr. Camilo & Dr. Polo), After Hours / Nights (5pm -8am) Weekends and Holidays Please call [facility] ([facility]) Charge Nurse Home Health Nursing Order: Signs/symptoms of disease process Medication education-adverse effect Wound care and dressing changes Nursing assessment with vital signs I have seen patient Randell Byrd on 12/28/16. My clinical findings support the need for the requested home health care services because: Deconditioned w/ increased weakness I certify that my clinical findings support that this patient is homebound because: Post-op weakness Mildred Castillo Dec 28, 2016 13:59
[2016-12-28] MEDS: AMIODARONE 200 MG TAB PO SCH ×2 (14:00→23:04)
[2016-12-28] MEDS: ceFAZolin 2 GM PREMIX 50 ML IV SCH (15:52)
[2016-12-28] MEDS: oxyCODONE/ACETAMINOPHEN 5 MG/325 MG TAB PO PRN ×3 (16:09→23:05)
[2016-12-28] MEDS: RESP: ALBUTEROL 2.5 MG/IPRATROPIUM 0.5 MG NEB (SCH) NEB ×2 (17:43→22:21)
[2016-12-29] VITALS (18 sets, daily range): BP systolic 97–151; BP diastolic 50–94; PULSE 78–98; RESP 15–20; TEMP 97–98.5; O2SAT 93–97
[2016-12-29] MEDS: ceFAZolin 2 GM PREMIX 50 ML IV SCH ×4 (00:17→23:28)
[2016-12-29] MEDS: ACETAMINOPHEN 1000 MG/100 ML VIAL IV SCH ×2 (02:00→08:11)
[2016-12-29] MEDS: oxyCODONE/ACETAMINOPHEN 5 MG/325 MG TAB PO PRN ×7 (03:20→23:28)
[2016-12-29] MEDS: RESP: ALBUTEROL 2.5 MG/IPRATROPIUM 0.5 MG NEB (SCH) NEB ×3 (03:57→21:05)
[2016-12-29 05:05] LABS: HEMATOCRIT 34.5 % (39.0-51.0); MEAN CELL VOLUME 87.6 FL (80.0-100.0); MEAN CORPUSCULAR HEMOGLOBIN 29.2 PG (27.0-34.0); MEAN CORPUSCULAR HGB CONC 33.3 % (32.0-36.0); PLATELET COUNT 161 TH/MM3 (150-450); RED BLOOD COUNT 3.94 MIL/MM3 (4.50-5.90); RED CELL DISTRIBUTION WIDTH 13.6 % (11.6-17.2); REVIEW FLAG FINAL; WHITE BLOOD COUNT 19.5 TH/MM3 (4.0-11.0)
[2016-12-29 05:21] LABS: BICARBONATE 22.1 MEQ/L (21.0-32.0); MAGNESIUM 2.1 MG/DL (1.5-2.5)
--- NOTE | 2016-12-29 05:38 | RADRPT ---
EXAM DATE/TIME: 12/29/2016 05:05 [facility] COMPARISON: CHEST SINGLE AP, December 28, 2016, 12:49. INDICATIONS : Short of breath. MEDICAL HISTORY : Hepatitis B. thyroid disease, sleep apnea SURGICAL HISTORY : CABG. ENCOUNTER: Subsequent ACUITY: 1 week PAIN SCORE: 0/10 LOCATION: Bilateral chest FINDINGS: 2 left-sided anterior chest tubes noted without significant pneumothorax. Right central line in super ior vena cava. Bilateral mostly basilar airspace disease. Previous median sternotomy. CONCLUSION: Interval extubation with slight increase in basilar airspace disease compared with December 28. Anterio r chest tubes remain without pneumothorax. Clifford Vázquez MD on December 29, 2016 at 5:34 Board Certified Radiologist. This report was verified electronically.
[2016-12-29] MEDS: PANTOPRAZOLE SOD 40 MG DELAYED RELEASE TAB PO SCH (06:04)
[2016-12-29] MEDS: AMIODARONE 200 MG TAB PO SCH ×3 (06:04→23:27)
[2016-12-29] MEDS: LEVOTHYROXINE SODIUM 50 MCG TAB PO SCH (06:05)
[2016-12-29] MEDS: ASPIRIN 81 MG CHEW TAB PO SCH (08:11)
[2016-12-29] MEDS ORDERED: SOD PHOSPHATE/SOD BIPHOSPHATE (ADULT) ENEMA 133ML RECTAL PRN (09:15)
[2016-12-29] MEDS ORDERED: FUROSEMIDE 20 MG/2 ML VIAL IV PUSH ONE (09:15)
[2016-12-29] MEDS ORDERED: BISACODYL 10 MG SUPP RECTAL PRN (09:15)
[2016-12-29] MEDS ORDERED: GLUCAGON 1 MG/ML VIAL OTHER PRN (09:15)
[2016-12-29] MEDS ORDERED: DEXTROSE 50% IN WATER 50 ML VIAL(D50) IV PRN (09:15)
[2016-12-29] MEDS: DOCUSATE SODIUM 100 MG CAP PO SCH ×2 (10:26→20:48)
[2016-12-29] MEDS: INSULIN ASPART SUPPLEMENTAL SCALE SQ SCH ×4 (10:32→22:00)
--- NOTE | 2016-12-29 12:18 | PD.CAR.PN ---
CVT Progress Note Subjective/Hospital Course: 66/ male / hx of recent chest pain, evaluated by Dr Andrew Jacobsen, underwent cardiac cath which showed 95% mid /distal LAD. 75% Circ, 100% OM 75% RCA. Echo showed EF 55%, grade 1 diastolic dysfunction pt went home and was brought back for elective surgery PMH: HLP, CAD, hypothyroidism , sleep apnea ( does not wear CPAP device) 12/28 surgery: CABG x 5, DUVALL to LAD - poor, SVG to PDA - good, SVG to OM3 - good , SVG to OM1 - fair, SVG to D1 - good, EVH, SAMIA extubated after surgery 12/29 Doing well up in chair, remains in NSR start BB this pm, on ASA, statin pulm toileting , gentle diuresis Objective: GENERAL: SKIN: Warm and dry. prevena to chest , morena wrap to leg HEAD: Normocephalic. EYES: No scleral icterus. No injection or drainage. NECK: Supple, trachea midline. No JVD or lymphadenopathy. CARDIOVASCULAR: Regular rate and rhythm without murmurs, gallops, or rubs. RESPIRATORY: Breath sounds equal bilaterally. No accessory muscle use. diminished in bases / chest tube 200cc/ 12 hrs, no air leak GASTROINTESTINAL: Abdomen soft, non-tender, nondistended. MUSCULOSKELETAL: No cyanosis, or edema. BACK: Nontender without obvious deformity. No CVA tenderness. Vital Signs Date Time Temp Pulse Resp B/P (MAP) Pulse Ox O2 Delivery O2 Flow Rate FiO2 12/29/16 11:21 93 21 12/29/16 07:30 98.3 86 16 107/62 (77) 93 97/50 (66) 12/29/16 07:30 93 Nasal Cannula 3.00 12/29/16 07:30 86 12/29/16 03:35 98.5 91 15 119/70 (86) 95 103/55 (71) 12/29/16 03:35 95 Nasal Cannula 5.00 12/29/16 03:35 95 12/28/16 23:11 86 12/28/16 23:11 95 Nasal Cannula 5.00 12/28/16 23:11 98.0 83 15 119/77 (91) 95 136/63 (87) 12/28/16 21:45 96 Nasal Cannula 3.00 12/28/16 19:43 95 Nasal Cannula 5.00 12/28/16 19:43 97.7 69 16 128/81 (97) 95 139/66 (90) 12/28/16 19:00 69 12/28/16 17:30 18 12/28/16 16:52 97.2 12/28/16 16:12 Simple Mask 6.00 96 12/28/16 16:11 74 12/28/16 15:52 18 12/28/16 15:23 Simple Mask 6.00 96 12/28/16 15:22 97.8 70 19 109/55 (73) 96 12/28/16 15:20 73 12/28/16 13:41 92 Nasal Cannula 5 12/28/16 13:07 97.2 12/28/16 12:59 97.2 70 11 107/60 (76) 95 12/28/16 12:54 94 50 12/28/16 12:48 79 12/28/16 12:46 95 Mechanical Ventilator 50 12/28/16 12:46 50 12/28/16 12:23 94 50 Labs: Laboratory Tests Test 12/29/16 04:05 White Blood Count 19.5 TH/MM3 (4.0-11.0) Red Blood Count 3.94 MIL/MM3 (4.50-5.90) Hemoglobin 11.5 GM/DL (13.0-17.0) Hematocrit 34.5 % (39.0-51.0) Mean Corpuscular Volume 87.6 FL (80.0-100.0) Mean Corpuscular Hemoglobin 29.2 PG (27.0-34.0) Mean Corpuscular Hemoglobin Concent 33.3 % (32.0-36.0) Red Cell Distribution Width 13.6 % (11.6-17.2) Platelet Count 161 TH/MM3 (150-450) Mean Platelet Volume 9.8 FL (7.0-11.0) Blood Urea Nitrogen 17 MG/DL (7-18) Creatinine 1.16 MG/DL (0.60-1.30) Random Glucose 132 MG/DL (74-106) Calcium Level 8.1 MG/DL (8.5-10.1) Magnesium Level 2.1 MG/DL (1.5-2.5) Sodium Level 136 MEQ/L (136-145) Potassium Level 5.0 MEQ/L (3.5-5.1) Chloride Level 105 MEQ/L (98-107) Carbon Dioxide Level 22.1 MEQ/L (21.0-32.0) Anion Gap 9 MEQ/L (5-15) Estimat Glomerular Filtration Rate 63 ML/MIN (>89) Result Diagram: 12/29/1640412/29/16404 Telemetry: NSR (1) CAD (coronary artery disease) (2) S/P CABG x 5 Plan: ASA, statin , BB pulm toileting nebs ezpap acapella ambulate wean 02 CM to eval HHC (3) Hypothyroidism Plan: Synthroid (4) Hypertension Plan: stable Mildred Castillo Dec 29, 2016 12:18
[2016-12-29] MEDS: METOCLOPRAMIDE HCL 10 MG/2 ML VIAL IV SCH ×3 (13:05→23:28)
--- NOTE | 2016-12-29 19:35 | EKG ---
Date Performed: 12/29/2016 Time Performed: 05:59:36 PTAGE: 66 years EKG: Sinus rhythm rSr'(V1) - probable normal variant Normal ECG PREVIOUS TRACING : 12/20/2016 06.24 Compared to prior tracing no significant change DOCTOR: Eri Lozano Interpretating Date/Time 12/29/2016 19:32:58
[2016-12-29] MEDS: SENNOSIDES 8.6 MG TAB PO SCH (20:48)
[2016-12-29] MEDS: METOPROLOL TARTRATE 25 MG TAB PO SCH (20:48)
[2016-12-30] VITALS (27 sets, daily range): BP systolic 105–125; BP diastolic 66–75; PULSE 73–98; RESP 16–21; TEMP 97.7–99.2; O2SAT 92–96
[2016-12-30] MEDS: INSULIN ASPART SUPPLEMENTAL SCALE SQ SCH ×5 (02:00→21:00)
[2016-12-30] MEDS: oxyCODONE/ACETAMINOPHEN 5 MG/325 MG TAB PO PRN ×4 (03:28→21:01)
[2016-12-30 04:28] LABS: AUTOMATED NEUTROPHIL # 15.5 TH/MM3 (1.8-7.7); BASOPHIL % 0.1 % (0.0-2.0); EOSINOPHIL % 0.2 % (0.0-4.0); HEMATOCRIT 31.3 % (39.0-51.0); LYMPH % 7.3 % (9.0-44.0); LYMPHOCYTE # 1.4 TH/MM3 (1.0-4.8); MEAN CELL VOLUME 88.6 FL (80.0-100.0); MEAN CORPUSCULAR HEMOGLOBIN 28.5 PG (27.0-34.0); MEAN CORPUSCULAR HGB CONC 32.2 % (32.0-36.0); MONO % 11.5 % (0.0-8.0); NEUT % 80.9 % (16.0-70.0); PLATELET COUNT 151 TH/MM3 (150-450); RED BLOOD COUNT 3.53 MIL/MM3 (4.50-5.90); RED CELL DISTRIBUTION WIDTH 13.6 % (11.6-17.2); WHITE BLOOD COUNT 19.1 TH/MM3 (4.0-11.0)
[2016-12-30 04:30] LABS: HEMO FLAGS AUTO DIFF
[2016-12-30 04:46] LABS: BICARBONATE 29.4 MEQ/L (21.0-32.0); MAGNESIUM 2.2 MG/DL (1.5-2.5); POTASSIUM 4.4 MEQ/L (3.5-5.1)
[2016-12-30] MEDS: PANTOPRAZOLE SOD 40 MG DELAYED RELEASE TAB PO SCH (05:40)
[2016-12-30] MEDS: AMIODARONE 200 MG TAB PO SCH ×3 (05:40→21:02)
[2016-12-30] MEDS: LEVOTHYROXINE SODIUM 50 MCG TAB PO SCH (05:40)
[2016-12-30] MEDS: METOCLOPRAMIDE HCL 10 MG/2 ML VIAL IV SCH (05:41)
[2016-12-30 06:06] LABS: PLATELET ESTIMATE SMEAR NORMAL (NORMAL); PLATELET MORPHOLOGY NORMAL (NORMAL); SCAN/DIFF AUTO DIFF CONFIRMED
[2016-12-30] MEDS: RESP: ALBUTEROL 2.5 MG/IPRATROPIUM 0.5 MG NEB (SCH) NEB ×3 (07:39→20:38)
[2016-12-30] MEDS: MAGNESIUM HYDROXIDE SUSP 30 ML CUP PO SCH (08:57)
[2016-12-30] MEDS: DOCUSATE SODIUM 100 MG CAP PO SCH ×2 (08:57→21:01)
[2016-12-30] MEDS: POLYETHYLENE GLYCOL 17 GM PKG PO SCH (08:57)
[2016-12-30] MEDS: METOPROLOL TARTRATE 25 MG TAB PO SCH ×2 (08:57→21:01)
[2016-12-30] MEDS: ASPIRIN 81 MG CHEW TAB PO SCH (08:58)
[2016-12-30] MEDS: MULTIVITAMINS/MINERALS THERAPEUTIC TAB PO SCH (08:58)
[2016-12-30 11:19] LABS: HDL CHOLESTEROL 30.9 MG/DL (40.0-60.0); INDIRECT BILIRUBIN 0.3 MG/DL (0.0-0.8); TOTAL BILIRUBIN ADULT 0.4 MG/DL (0.2-1.0)
--- NOTE | 2016-12-30 14:05 | PD.CAR.PN ---
CVT Progress Note Subjective/Hospital Course: 66/ male / hx of recent chest pain, evaluated by Dr Andrew Jacobsen, underwent cardiac cath which showed 95% mid /distal LAD. 75% Circ, 100% OM 75% RCA. Echo showed EF 55%, grade 1 diastolic dysfunction pt went home and was brought back for elective surgery PMH: HLP, CAD, hypothyroidism , sleep apnea ( does not wear CPAP device) 12/28 surgery: CABG x 5, DUVALL to LAD - poor, SVG to PDA - good, SVG to OM3 - good , SVG to OM1 - fair, SVG to D1 - good, EVH, SAMIA extubated after surgery 12/29 Doing well up in chair, remains in NSR start BB this pm, on ASA, statin pulm toileting , gentle diuresis 12/30 chest tube drained 120cc/ 12 hrs will remove this afternoon after further ambulation remains in NSR will start statin Objective: GENERAL: SKIN: Warm and dry. prevena to chest , incision to left leg intact HEAD: Normocephalic. EYES: No scleral icterus. No injection or drainage. NECK: Supple, trachea midline. No JVD or lymphadenopathy. CARDIOVASCULAR: Regular rate and rhythm without murmurs, gallops, or rubs. RESPIRATORY: Breath sounds equal bilaterally. No accessory muscle use. chest tubes in place/ drained 120cc/ 12 hrs , no air leak, eval for removal GASTROINTESTINAL: Abdomen soft, non-tender, nondistended. MUSCULOSKELETAL: No cyanosis, or edema. BACK: Nontender without obvious deformity. No CVA tenderness. Vital Signs Date Time Temp Pulse Resp B/P (MAP) Pulse Ox O2 Delivery O2 Flow Rate FiO2 12/30/16 13:07 82 12/30/16 12:00 87 12/30/16 11:00 96 Nasal Cannula 1.00 12/30/16 11:00 80 12/30/16 11:00 98.7 79 16 111/72 (85) 96 12/30/16 10:00 82 12/30/16 09:15 88 12/30/16 08:00 93 Nasal Cannula 1.00 12/30/16 08:00 99.2 89 16 125/73 (90) 93 12/30/16 08:00 89 12/30/16 07:39 95 Nasal Cannula 2.00 12/30/16 07:01 82 12/30/16 06:14 81 12/30/16 05:22 80 12/30/16 04:53 83 12/30/16 03:50 93 12/30/16 03:50 97 Nasal Cannula 2.00 12/30/16 03:50 98.4 91 21 115/68 (84) 94 12/30/16 02:26 87 12/30/16 01:05 89 12/30/16 00:15 90 12/30/16 00:00 90 Nasal Cannula 2.00 12/29/16 23:15 98.4 96 19 120/75 (90) 97 12/29/16 23:15 98 12/29/16 23:07 97 Room Air 12/29/16 22:05 88 12/29/16 21:05 96 12/29/16 21:00 90 12/29/16 20:00 90 12/29/16 19:35 91 12/29/16 19:35 98.3 93 20 151/86 (107) 97 12/29/16 19:35 97 Room Air 12/29/16 18:15 92 12/29/16 17:01 81 12/29/16 16:00 88 12/29/16 15:24 95 Room Air 12/29/16 15:18 97.4 84 17 137/82 (100) 95 12/29/16 15:00 92 12/29/16 14:27 96 Labs: Laboratory Tests Test 12/30/16 04:15 White Blood Count 19.1 TH/MM3 (4.0-11.0) Red Blood Count 3.53 MIL/MM3 (4.50-5.90) Hemoglobin 10.1 GM/DL (13.0-17.0) Hematocrit 31.3 % (39.0-51.0) Mean Corpuscular Volume 88.6 FL (80.0-100.0) Mean Corpuscular Hemoglobin 28.5 PG (27.0-34.0) Mean Corpuscular Hemoglobin Concent 32.2 % (32.0-36.0) Red Cell Distribution Width 13.6 % (11.6-17.2) Platelet Count 151 TH/MM3 (150-450) Mean Platelet Volume 8.8 FL (7.0-11.0) Neutrophils (%) (Auto) 80.9 % (16.0-70.0) Lymphocytes (%) (Auto) 7.3 % (9.0-44.0) Monocytes (%) (Auto) 11.5 % (0.0-8.0) Eosinophils (%) (Auto) 0.2 % (0.0-4.0) Basophils (%) (Auto) 0.1 % (0.0-2.0) Neutrophils # (Auto) 15.5 TH/MM3 (1.8-7.7) Lymphocytes # (Auto) 1.4 TH/MM3 (1.0-4.8) Monocytes # (Auto) 2.2 TH/MM3 (0-0.9) Eosinophils # (Auto) 0.0 TH/MM3 (0-0.4) Basophils # (Auto) 0.0 TH/MM3 (0-0.2) CBC Comment AUTO DIFF Differential Comment AUTO DIFF CONFIRMED Platelet Estimate NORMAL (NORMAL) Platelet Morphology Comment NORMAL (NORMAL) Red Cell Morphology Comment NORMAL (NORMAL) Blood Urea Nitrogen 22 MG/DL (7-18) Creatinine 1.41 MG/DL (0.60-1.30) Random Glucose 124 MG/DL (74-106) Calcium Level 7.7 MG/DL (8.5-10.1) Magnesium Level 2.2 MG/DL (1.5-2.5) Sodium Level 135 MEQ/L (136-145) Potassium Level 4.4 MEQ/L (3.5-5.1) Chloride Level 101 MEQ/L (98-107) Carbon Dioxide Level 29.4 MEQ/L (21.0-32.0) Anion Gap 5 MEQ/L (5-15) Estimat Glomerular Filtration Rate 50 ML/MIN (>89) Total Bilirubin 0.4 MG/DL (0.2-1.0) Direct Bilirubin 0.1 MG/DL (0.0-0.2) Indirect Bilirubin 0.3 MG/DL (0.0-0.8) Aspartate Amino Transf (AST/SGOT) 29 U/L (15-37) Alanine Aminotransferase (ALT/SGPT) 14 U/L (12-78) Alkaline Phosphatase 47 U/L (45-117) Total Protein 5.8 GM/DL (6.4-8.2) Albumin 2.6 GM/DL (3.4-5.0) Triglycerides Level 90 MG/DL (42-150) Cholesterol Level 111 MG/DL (120-200) LDL Cholesterol 62 MG/DL (0-99) HDL Cholesterol 30.9 MG/DL (40.0-60.0) Cholesterol/HDL Ratio 3.59 RATIO Result Diagram: 12/30/16 0415 12/30/16 041 (1) CAD (coronary artery disease) (2) S/P CABG x 5 Plan: ASA, start statin , BB pulm toileting nebs ezpap acapella ambulate wean 02 CM to eval C (3) Hypothyroidism Plan: Synthroid (4) Hypertension Plan: stable (5) Acute kidney injury Plan: avoid nephrotoxic drugs hold on diuretics Mildred Castillo Dec 30, 2016 14:05
[2016-12-30] MEDS ORDERED: ATORVASTATIN 10 MG TAB PO SCH (21:00)
[2016-12-30] MEDS: SENNOSIDES 8.6 MG TAB PO SCH (21:01)
[2016-12-31] VITALS (20 sets, daily range): BP systolic 105–127; BP diastolic 58–81; PULSE 72–90; RESP 16–18; TEMP 98–98.6; O2SAT 95–97
[2016-12-31] MEDS: AMIODARONE 200 MG TAB PO SCH ×2 (06:03→14:38)
[2016-12-31] MEDS: LEVOTHYROXINE SODIUM 50 MCG TAB PO SCH (06:03)
[2016-12-31] MEDS: PANTOPRAZOLE SOD 40 MG DELAYED RELEASE TAB PO SCH (06:03)
[2016-12-31] MEDS: INSULIN ASPART SUPPLEMENTAL SCALE SQ SCH ×3 (06:30→16:00)
[2016-12-31] MEDS: oxyCODONE/ACETAMINOPHEN 5 MG/325 MG TAB PO PRN ×2 (08:18→14:38)
[2016-12-31] MEDS: ASPIRIN 81 MG CHEW TAB PO SCH (08:21)
[2016-12-31] MEDS: MAGNESIUM HYDROXIDE SUSP 30 ML CUP PO SCH (08:21)
[2016-12-31] MEDS: MULTIVITAMINS/MINERALS THERAPEUTIC TAB PO SCH (08:22)
[2016-12-31] MEDS: POLYETHYLENE GLYCOL 17 GM PKG PO SCH (08:22)
[2016-12-31] MEDS: METOPROLOL TARTRATE 25 MG TAB PO SCH (08:22)
[2016-12-31] MEDS: DOCUSATE SODIUM 100 MG CAP PO SCH (08:22)
[2016-12-31] MEDS: RESP: ALBUTEROL 2.5 MG/IPRATROPIUM 0.5 MG NEB (SCH) NEB ×2 (09:06→11:44)
[2016-12-31] MEDS ORDERED: DOCU1CAP39 PO (14:49)
[2016-12-31] MEDS ORDERED: OXYC1TAB63 PO (14:49)
[2016-12-31] MEDS ORDERED: AMIO200T PO (14:49)
[2016-12-31] MEDS ORDERED: THERM PO (14:49)
[2016-12-31] MEDS ORDERED: POLY17S PO (14:49)
[2016-12-31] MEDS ORDERED: LIPI10TA PO (14:49)
[2016-12-31] MEDS ORDERED: METO25TA3 PO (14:49)
--- NOTE | 2016-12-31 15:00 | HHI.DS ---
Discharge Summary Admission Date Dec 28, 2016 at 05:20 Discharge Date: Dec 31, 2016 Admitting Diagnosis chest pain , CAD (1) CAD (coronary artery disease) ICD Codes: I25.10 - Atherosclerotic heart disease of [place] coronary artery without angina pectoris Status: Acute (2) Angina pectoris ICD Codes: I20.9 - Angina pectoris, unspecified Status: Acute (3) Hypothyroidism ICD Codes: E03.9 - Hypothyroidism, unspecified Status: Chronic (4) Hypertension ICD Codes: I10 - Essential (primary) hypertension Status: Chronic (5) Acute kidney injury ICD Codes: N17.9 - Acute kidney failure, unspecified Status: Acute (6) S/P CABG x 5 ICD Codes: Z95.1 - Presence of aortocoronary bypass graft Status: Acute Procedures CABG x 5 12/28 DUVALL to LAD - poor SVG to PDA - good SVG to OM3 - good SVG to OM1 - fair SVG to D1 - good EVH SAMIA Brief History 66/ male / hx of recent chest pain, evaluated by Dr Andrew Jacobsen, underwent cardiac cath which showed 95% mid /distal LAD. 75% Circ, 100% OM 75% RCA. Echo showed EF 55%, grade 1 diastolic dysfunction pt went home and was brought back for elective surgery PMH: HLP, CAD, hypothyroidism , sleep apnea ( does not wear CPAP device) 12/28 surgery: CABG x 5, DUVALL to LAD - poor, SVG to PDA - good, SVG to OM3 - good , SVG to OM1 - fair, SVG to D1 - good, EVH, SAMIA CBC/BMP: 12/30/16 0415 12/30/16 0415 Significant Findings Laboratory Tests Test 12/29/16 04:05 12/30/16 04:15 White Blood Count 19.5 TH/MM3 (4.0-11.0) 19.1 TH/MM3 (4.0-11.0) Red Blood Count 3.94 MIL/MM3 (4.50-5.90) 3.53 MIL/MM3 (4.50-5.90) Hemoglobin 11.5 GM/DL (13.0-17.0) 10.1 GM/DL (13.0-17.0) Hematocrit 34.5 % (39.0-51.0) 31.3 % (39.0-51.0) Random Glucose 132 MG/DL (74-106) 124 MG/DL (74-106) Calcium Level 8.1 MG/DL (8.5-10.1) 7.7 MG/DL (8.5-10.1) Estimat Glomerular Filtration Rate 63 ML/MIN (>89) 50 ML/MIN (>89) Neutrophils (%) (Auto) 80.9 % (16.0-70.0) Lymphocytes (%) (Auto) 7.3 % (9.0-44.0) Monocytes (%) (Auto) 11.5 % (0.0-8.0) Neutrophils # (Auto) 15.5 TH/MM3 (1.8-7.7) Monocytes # (Auto) 2.2 TH/MM3 (0-0.9) Blood Urea Nitrogen 22 MG/DL (7-18) Creatinine 1.41 MG/DL (0.60-1.30) Sodium Level 135 MEQ/L (136-145) Total Protein 5.8 GM/DL (6.4-8.2) Albumin 2.6 GM/DL (3.4-5.0) Cholesterol Level 111 MG/DL (120-200) HDL Cholesterol 30.9 MG/DL (40.0-60.0) Imaging GENERAL: SKIN: Warm and dry. HEAD: Normocephalic. EYES: No scleral icterus. No injection or drainage. NECK: Supple, trachea midline. No JVD or lymphadenopathy. CARDIOVASCULAR: Regular rate and rhythm without murmurs, gallops, or rubs. RESPIRATORY: Breath sounds equal bilaterally. No accessory muscle use. GASTROINTESTINAL: Abdomen soft, non-tender, nondistended. MUSCULOSKELETAL: No cyanosis, or edema. BACK: Nontender without obvious deformity. No CVA tenderness. PE at Discharge GENERAL: SKIN: Warm and dry. prevena dressing to chest , incision intact to leg HEAD: Normocephalic. EYES: No scleral icterus. No injection or drainage. NECK: Supple, trachea midline. No JVD or lymphadenopathy. CARDIOVASCULAR: Regular rate and rhythm without murmurs, gallops, or rubs. RESPIRATORY: Breath sounds equal bilaterally. No accessory muscle use. GASTROINTESTINAL: Abdomen soft, non-tender, nondistended. MUSCULOSKELETAL: No cyanosis, or edema. BACK: Nontender without obvious deformity. No CVA tenderness. Hospital Course 12/28 surgery: CABG x 5, DUVALL to LAD - poor, SVG to PDA - good, SVG to OM3 - good , SVG to OM1 - fair, SVG to D1 - good, EVH, SAMIA extubated after surgery 12/29 Doing well up in chair, remains in NSR start BB this pm, on ASA, statin pulm toileting , gentle diuresis 12/30 chest tube drained 120cc/ 12 hrs will remove this afternoon after further ambulation remains in NSR will start statin 12/31 + BM, remains in NSR EF 55% stable for discharge today on room air Pt Condition on Discharge: Good Discharge Disposition: Disch w/ Home Health Serv Discharge Instructions DIET: Follow Instructions for: Heart Healthy Diet Activities you can perform: Full Weight Bearing, Shower Only-No Bath Activities to avoid: Strenuous Activity, Driving Additional Activity Instructio: no lifting > 8 lbs or gallon of milk Follow up Referrals: Appointment for Follow Up with Vania Polo MD Cardiology with Andrew Jacobsen MD PCP Follow-up with [facility] New Orders: BASIC METABOLIC PROF - 2 Weeks CBC NO DIFF - 2 Weeks X-RAY CHEST PA & LAT - 2 Weeks New Medications: Amiodarone (Amiodarone) 200 Mg Tab 200 MG PO BID for antiarrythmic med/ prophylaxis, #14 TAB 0 Refills Atorvastatin (Lipitor) 10 Mg Tab 10 MG PO HS for Cholesterol Management, #30 TAB 2 Refills Docusate Sodium (Dok) 100 Mg Cap 100 MG PO BID for Constipation, #60 CAP 0 Refills Metoprolol Tartrate (Metoprolol Tartrate) 25 Mg Tab 12.5 MG PO BID for Blood Pressure Management, #60 TAB 2 Refills Multiple Vitamins W/ Minerals (Thera M Plus) 1 Tab 1 TAB PO DAILY for multi vitamin, #30 TAB 2 Refills Oxycodone-Acetaminophen (Oxycodone-Acetaminophen) 5-325 mg Tab 1 TAB PO Q6HR PRN for PAIN SCALE 1 TO 5, #40 TAB 0 Refills Polyethylene Glycol 3350 Powder (Polyethylene Glycol 3350 Powder) 17 Gm Pow 17 GM PO DAILY for Constipation, #30 PACK 0 Refills Continued Medications: Aspirin DR (Aspirin DR) 81 Mg Tabdr 81 MG PO DAILY, TAB 0 Refills Levothyroxine (Levothyroxine) 50 Mcg Tab 25 MCG PO DAILY for Thyroid, #30 TAB 0 Refills Mildred Castillo Dec 31, 2016 15:00
== END 2016-12-31 18:00 | disposition home health service (06) | DRG 236 ==
LOC: HSDI 05:20 → HCVR 12:25 → HCIN 12-29 11:37
PROVIDERS: ADMIT Thoracic Surgery (Cardiothoracic Vascular Surgery); ATTEND Thoracic Surgery (Cardiothoracic Vascular Surgery)
PROC: 06BQ4ZZ Excision of Left Saphenous Vein, Percutaneous Endoscopic Approach (ICD-10-PCS; 2016-12-28)
PROC: 5A1221Z Performance of Cardiac Output, Continuous (ICD-10-PCS; 2016-12-28)
PROC: B24BZZ4 Ultrasonography of Heart with Aorta, Transesophageal (ICD-10-PCS; 2016-12-28)
PROC: 02100Z9 Bypass Coronary Artery, One Artery from Left Internal Mammary, Open Approach (ICD-10-PCS; principal; 2016-12-28 07:39)
PROC: 021309W Bypass Coronary Artery, Four or More Arteries from Aorta with Autologous Venous Tissue, Open Approach (ICD-10-PCS; 2016-12-28 07:39)
DX: I25.119 Atherosclerotic heart disease of native coronary artery with unspecified angina pectoris (principal); N17.9 Acute kidney failure, unspecified; I10 Essential (primary) hypertension; E03.9 Hypothyroidism, unspecified; E78.5 Hyperlipidemia, unspecified; G47.30 Sleep apnea, unspecified; G62.9 Polyneuropathy, unspecified; M54.9 Dorsalgia, unspecified; E66.9 Obesity, unspecified; Z68.31 Body mass index [BMI] 31.0-31.9, adult; I12.9 Hypertensive chronic kidney disease with stage 1 through stage 4 chronic kidney disease, or unspecified chronic kidney disease; N18.9 Chronic kidney disease, unspecified
CPT/HCPCS: 36415; 71010; 76937; 80048; 80061; 80076; 82948; 83735; 85014; 85025; 85027; 86850; 86900; 86901; 86920; 93005; 93318; 94002; 94150; 94640; 94664; 94667; 94668; J0131; J0690; J1644; J1815; J1817; J1940; J2150; J2250; J2440; J2720; J2765; J2930; J3010; J3370; J3475; J3480; J7040; J7050; J7120; P9047